=== PATIENT | female | born 1995 | race Asian ===

== ENCOUNTER 2017-05-12 05:30 | Emergency (ER) | payer OTHER ==
[2017-05-12 05:38] VITALS: BP 110/75; PULSE 106; RESP 16; TEMP 98.4; O2SAT 97
[2017-05-12] MEDS ORDERED: NS 1,000 ML IV ONE (05:43)
[2017-05-12] MEDS ORDERED: ONDANSETRON 4 MG/2 ML VIAL IVP ONE (05:43)
--- NOTE | 2017-05-12 05:43 | EDPHY ---
H & P Stated Complaint: fell, struck head, dizzy, nauseated HPI/ROS: HPI CHIEF COMPLAINT: Mechanical trip and fall, head strike HISTORY OF PRESENT ILLNESS: This patient very pleasant 22-year-old female, she presents to the emergency room after she was hiking down amount slipped on snow she fell backwards onto her back with head strike. No LOC. She now complains of a headache posterior and nausea. 1 episode of vomiting. Denies neck pain chest pain or shortness of breath. States she went up on amount hike around 8: 00 p.m.. Came down around 2:00 a.m. I will descending she fell. No other injuries. Past Medical History: Denies significant medical history Past Surgical History: Denies significant surgical history Social History: Denies daily use drugs alcohol tobacco. [employer] student. Family History: Noncontributory ROS REVIEW OF SYSTEMS: A comprehensive 10 point review of systems is otherwise negative aside from elements mentioned in the history of present illness. Exam Constitutional appears well nontoxic, triage nursing summary reviewed, vital signs reviewed, awake/alert. Eyes normal conjunctivae and sclera, EOMI, PERRLA. HENT head/neck: Tender palpation over the right occiput, no laceration or significant hematoma present. No midline cervical spine pain. normal inspection, atraumatic, moist mucus membranes, no epistaxis, neck supple/ no meningismus, no raccoon eyes. Respiratory clear to auscultation bilaterally, normal breath sounds, no respiratory distress, no wheezing. Cardiovascular rate normal, regular rhythm, no murmur, no edema, distal pulses normal. Gastrointestinal soft, non-tender, no rebound, no guarding, normal bowel sounds, no distension, no pulsatile mass. Genitourinary no CVA tenderness. Musculoskeletal of the right posterior SI joint there is mild tenderness palpation no midline lumbar back pain. no midline vertebral tenderness, full range of motion, no calf swelling, no tenderness of extremities, no meningismus , good pulses, neurovascularly intact. Skin pink, warm, & dry, no rash, skin atraumatic. Neurologic awake, alert and oriented x 3, AAOx3, moves all 4 extremities equally, motor intact, sensory intact, CN II-XII intact, normal cerebellar, normal vision, normal speech. Psychiatric normal mood/affect. Heme/Lymph/Immune no lymphadenopathy. Differential Diagnosis: Includes but is not limited to in a particular order closed-head injury, concussion, intracranial bleed, skull fracture, musculoskeletal contusion, contusion, soft tissue injury Medical Decision Making: Plan for this patient Zofran p. o., ibuprofen 800 mg p.o., x-ray of the pelvis P CT scan of the head without contrast for trauma. Re-evaluation: CT scan of the head without IV contrast The results of the study are negative for acute traumatic injury. No skull fracture bleed. The study was read by Dr. Hartman I viewed the images myself on the PACS system. ED x-ray pelvis negative for acute traumatic injury. 0617: Patient of vomiting normal neurological exam. Went over imaging pelvis and x-ray and CT. She is comfortable going home. After Zofran and ibuprofen. Most likely has closed head injury concussion. She understands return emergency room if develops worsening symptoms vomiting, fever or any questions or concerns. Source: Patient - Personal History LMP (Females 10-55): Hysterectomy - Medical/Surgical History Hx Asthma: No Hx Chronic Respiratory Disease: No Hx Diabetes: No Hx Cardiac Disease: No Hx Renal Disease: No Hx Cirrhosis: No Hx Alcoholism: No Hx HIV/AIDS: No Hx Splenectomy or Spleen Trauma: No Other PMH: PMHx: denies. PSHx: denies - Social History Smoking Status: Never smoked Constitutional: Initial Vital Signs Temperature (C) 36.9 C 05/12/17 05:35 Heart Rate 106 H 05/12/17 05:35 Respiratory Rate 16 05/12/17 05:35 Blood Pressure 110/75 05/12/17 05:35 O2 Sat (%) 97 05/12/17 05:35 O2 Delivery Mode Room Air Allergies/Adverse Reactions: No Known Allergies Allergy (Unverified 05/12/17 05:32) Medical Decision Making - Data Points Medications Given: Discontinued Medications Sodium Chloride (Ns) 1,000 mls @ 0 mls/hr IV EDNOW ONE; Wide Open PRN Reason: Protocol Stop: 05/12/17 05:44 Last Admin: 05/12/17 06:07 Dose: Not Given Ibuprofen (Motrin) 800 mg PO EDNOW ONE Stop: 05/12/17 05:51 Last Admin: 05/12/17 06:13 Dose: 800 mg Ondansetron HCl (Zofran) 4 mg IVP EDNOW ONE Stop: 05/12/17 05:44 Last Admin: 05/12/17 06:07 Dose: Not Given Ondansetron HCl (Zofran Odt) 4 mg PO EDNOW ONE Stop: 05/12/17 05:51 Last Admin: 05/12/17 06:15 Dose: 4 mg Departure - Departure Disposition: Home, Routine, Self-Care Clinical Impression: Head injury Qualifiers: Encounter type: initial encounter Qualified Code(s): S09.90XA - Unspecified injury of head, initial encounter Concussion Qualifiers: Encounter type: initial encounter Loss of consciousness presence/duration: without LOC Qualified Code(s): S06.0X0A - Concussion without loss of consciousness, initial encounter Condition: Good Instructions: Concussion (ED), Head Injury (ED) Additional Instructions: 1. Please return to the room if you have worsening symptoms questions or concerns. Referrals: NONE *PRIMARY CARE P,. [Primary Care Provider] - As per Instructions
[2017-05-12] MEDS ORDERED: ONDANSETRON DISINTEGRATING 4 MG TAB PO ONE (05:50)
[2017-05-12] MEDS ORDERED: IBUPROFEN 200 MG TAB PO ONE (05:50)
== END 2017-05-12 06:30 | disposition home or self-care (01) ==
DX: S06.0X0A Concussion without loss of consciousness, initial encounter (principal); W00.0XXA Fall on same level due to ice and snow, initial encounter; Y99.8 Other external cause status; Y93.01 Activity, walking, marching and hiking

== ENCOUNTER 2017-06-09 23:14 | Emergency (ER) | payer OTHER ==
--- NOTE | 2017-06-09 23:17 | EDPHY ---
H & P HPI/ROS: HPI CHIEF COMPLAINT: Headache, nausea HISTORY OF PRESENT ILLNESS: This patient very pleasant 22-year-old female, she is otherwise healthy no significant medical history I previously saw her last month for head injury and fall. She presents emergency room with headache times 24 hours. Located right-sided throbbing in nature. It is not the worst headache of her life. She denies any meningeal signs. Denies stiff neck. Denies fever she does endorse some nausea with it. Denies problems with vision or double vision or blurry vision. Past Medical History: No significant medical history Past Surgical History: No significant surgical history Social History: Denies daily use of drugs alcohol tobacco products. [employer] student. Family History: Noncontributory ROS REVIEW OF SYSTEMS: A comprehensive 10 point review of systems is otherwise negative aside from elements mentioned in the history of present illness. Exam Constitutional appears well nontoxic, no acute distress, triage nursing summary reviewed, vital signs reviewed, awake/alert. Eyes normal conjunctivae and sclera, EOMI, PERRLA. HENT neck is supple. Not stiff. Full range of motion. normal inspection, atraumatic, moist mucus membranes, no epistaxis, neck supple/ no meningismus, no raccoon eyes. Respiratory clear to auscultation bilaterally, normal breath sounds, no respiratory distress, no wheezing. Cardiovascular rate normal, regular rhythm, no murmur, no edema, distal pulses normal. Gastrointestinal soft, non-tender, no rebound, no guarding, normal bowel sounds, no distension, no pulsatile mass. Genitourinary no CVA tenderness. Musculoskeletal no midline vertebral tenderness, full range of motion, no calf swelling, no tenderness of extremities, no meningismus, good pulses, neurovascularly intact. Skin pink, warm, & dry, no rash, skin atraumatic. Neurologic normal neurological exam, awake, alert and oriented x 3, AAOx3, moves all 4 extremities equally, motor intact, sensory intact, CN II-XII intact , normal cerebellar, normal vision, normal speech. Psychiatric normal mood/affect. Heme/Lymph/Immune no lymphadenopathy. Differential Diagnosis: Includes but is not limited to in a particular order, headache, migraine headache, tension headache, cluster headache, doubt meningitis given history review of systems and exam. Medical Decision Making: Plan for this patient IV established with IV fluid bolus, 1 g Tylenol for pain control, Zofran IV for nausea, basic blood work and influenza and re-evaluate. Re-evaluation: 0101; I did re-evaluate this patient this time she is resting comfortably. No meningeal signs on exam. She denies any focal complaints at this time. She states she is feeling much better. Her blood work has been reviewed is reassuring. Influenza negative. She has no chest pain no shortness of breath no headache. No meningeal signs. I do not feel that she needs any imaging. She does understand return emergency room if she develops worsening symptoms includes headache, fever, vomiting stiff neck. I do not feel that she needs a lumbar puncture. Most likely this is a tension headache. Return precautions given she understands. Source: Patient - Medical/Surgical History Hx Asthma: No Hx Chronic Respiratory Disease: No Hx Diabetes: No Hx Cardiac Disease: No Hx Renal Disease: No Hx Cirrhosis: No Hx Alcoholism: No Hx HIV/AIDS: No Hx Splenectomy or Spleen Trauma: No Other PMH: PMHx: denies. PSHx: denies - Social History Smoking Status: Never smoked Constitutional: Initial Vital Signs Temperature (C) 36.6 C 06/09/17 23:15 Heart Rate 64 06/09/17 23:15 Respiratory Rate 16 06/09/17 23:15 Blood Pressure 117/73 06/09/17 23:15 O2 Sat (%) 97 06/09/17 23:15 O2 Delivery Mode Room Air Allergies/Adverse Reactions: No Known Allergies Allergy (Verified 06/09/17 23:19) Home Medications: Medication Instructions Recorded NK [No Known Home Meds] 06/09/17 Medical Decision Making - Data Points Laboratory Results: Laboratory Results 06/09/17 23:30 06/09/17 23:30 06/09/17 06/09/17 06/09/17 23:50 23:30 23:30 WBC 10.57 10^3/uL H 10^3/uL (3.80-9.50) RBC 5.14 10^6/uL 10^6/uL (4.18-5.33) Hgb 15.7 g/dL g/dL (12.6-16.3) Hct 44.5 % % (38.0-47.0) MCV 86.6 fL fL (81.5-99.8) MCH 30.5 pg pg (27.9-34.1) MCHC 35.3 g/dL g/dL (32.4-36.7) RDW 12.2 % % (11.5-15.2) Plt Count 321 10^3/uL 10^3/uL (150-400) MPV 10.7 fL fL (8.7-11.7) Neut % (Auto) 62.3 % % (39.3-74.2) Lymph % (Auto) 29.4 % % (15.0-45.0) [place] % (Auto) 4.6 % % (4.5-13.0) Eos % (Auto) 2.8 % % (0.6-7.6) Baso % (Auto) 0.6 % % (0.3-1.7) Nucleat RBC Rel Count 0.0 % % (0.0-0.2) Absolute Neuts (auto) 6.58 10^3/uL H 10^3/uL (1.70-6.50) Absolute Lymphs (auto) 3.11 10^3/uL H 10^3/uL (1.00-3.00) Absolute Monos (auto) 0.49 10^3/uL 10^3/uL (0.30-0.80) Absolute Eos (auto) 0.30 10^3/uL 10^3/uL (0.03-0.40) Absolute Basos (auto) 0.06 10^3/uL 10^3/uL (0.02-0.10) Absolute Nucleated RBC 0.00 10^3/uL 10^3/uL (0-0.01) Immature Gran % 0.3 % % (0.0-1.1) Immature Gran # 0.03 10^3/uL 10^3/uL (0.00-0.10) Sodium 139 mEq/L mEq/L (134-144) Potassium 4.3 mEq/L mEq/L (3.5-5.2) Chloride 102 mEq/L mEq/L (97-110) Carbon Dioxide 22 mEq/l mEq/l (22-31) Anion Gap 15 mEq/L mEq/L (8-16) BUN 10 mg/dL mg/dL (7-23) Creatinine 0.5 mg/dL L mg/dL (0.6-1.0) Estimated GFR > 60 Glucose 105 mg/dL H mg/dL (70-100) Calcium 10.0 mg/dL mg/dL (8.5-10.4) Nasal Influenza A PCR NEGATIVE FOR FLU A (NEGATIVE) Nasal Influenza B PCR NEGATIVE FOR FLU B (NEGATIVE) Medications Given: Discontinued Medications Acetaminophen (Tylenol) 1,000 mg PO EDNOW ONE Stop: 06/09/17 23:26 Last Admin: 06/09/17 23:41 Dose: 1,000 mg Sodium Chloride (Ns) 1,000 mls @ 0 mls/hr IV ONCE ONE; Wide Open PRN Reason: Protocol Stop: 06/09/17 23:25 Last Admin: 06/09/17 23:41 Dose: 1,000 mls Ondansetron HCl (Zofran) 4 mg IVP EDNOW ONE Stop: 06/09/17 23:25 Last Admin: 06/09/17 23:41 Dose: 4 mg Departure - Departure Disposition: Home, Routine, Self-Care Clinical Impression: Headache Qualifiers: Headache type: unspecified Headache chronicity pattern: acute headache Intractability: not intractable Qualified Code(s): R51 - Headache Condition: Good Instructions: Acute Headache (ED) Additional Instructions: 1. Return to the emergency room if develops any worsening symptoms includes worsening headache, fever, vomiting. Referrals: NONE *PRIMARY CARE P,. [Primary Care Provider] - As per Instructions
[2017-06-09 23:21] VITALS: RESP 16; TEMP 97.9
[2017-06-09] MEDS ORDERED: NS 1,000 ML IV ONE ×2 (23:24)
[2017-06-09] MEDS ORDERED: ONDANSETRON 4 MG/2 ML VIAL IVP ONE ×2 (23:24)
[2017-06-09] MEDS ORDERED: ACETAMINOPHEN 500 MG TAB PO ONE ×2 (23:25)
[2017-06-09 23:38] LABS: PLATELET COUNT 321 10^3/uL (150-400)
[2017-06-10 01:07] VITALS: BP 126/73; PULSE 74; O2SAT 99
== END 2017-06-10 01:07 | disposition home or self-care (01) ==
DX: R51 Headache (principal); E86.9 Volume depletion, unspecified
CPT/HCPCS: 96374; J2405